=== PATIENT | male | born 1965 | race Caucasian/White ===

== ENCOUNTER 2021-06-13 04:08 | Day surgery (SDC) | payer BC ==
[2021-06-12 13:03] VITALS: BMI 34.7
[2021-06-13] MEDS ORDERED: PROPOFOL 20 ML ONE (10:32)
[2021-06-13] MEDS ORDERED: MIDAZOLAM HCL 2 MG/2 ML SINGLE DOSE VIAL ONE ×4 (10:33→11:00)
[2021-06-13] MEDS ORDERED: ceFAZolin SODIUM 1 GM VIAL IVPB ONE (11:18)
[2021-06-13] MEDS ORDERED: ONDANSETRON 4 MG/2 ML VIAL IVPUSH PRN ×3 (11:46→12:15)
[2021-06-13] MEDS ORDERED: oxyCODONE HCL 5 MG TABLET PO PRN ×2 (11:46→12:01)
[2021-06-13] MEDS ORDERED: BUPIVACAINE HCL/PF 0.5% (5MG/ML) 10 ML VIAL IJ ONE ×3 (11:57)
[2021-06-13] MEDS ORDERED: LACTATED RINGERS SOLUTION 1,000 ML IV SCH ×3 (12:00→12:15)
[2021-06-13] MEDS ORDERED: PROMETHAZINE HCL 25 MG/1 ML VIAL IVPUSH PRN ×2 (12:01→12:15)
[2021-06-13] MEDS: oxyCODONE HCL 5 MG TABLET PO PRN ×2 (13:50→16:29)
[2021-06-13 18:10] VITALS: TEMP 98
[2021-06-13 18:13] VITALS: PULSE 74
[2021-06-13 18:15] VITALS: BP 170/90
== END 2021-06-13 17:50 | disposition home or self-care (01) ==
LOC: JASU-SURG 04:08
PROVIDERS: ATTEND Urology
PROC: 0VB70ZZ Excision of Left Tunica Vaginalis, Open Approach (ICD-10-PCS; principal; 2021-06-13 11:00)
DX: N43.3 Hydrocele, unspecified (principal)
CPT/HCPCS: 94760